=== PATIENT | male | born 1995 | race Caucasian/White ===

== ENCOUNTER 2017-07-19 21:42 | Emergency (ER) | payer BC, OTHER ==
[~2017-07-19] VITALS: Ht 172.7 cm; Wt 71.8 kg
[2017-07-19] MEDS ORDERED: ONDANSETRON 2MG/ML, 2ML ONE (22:08)
[2017-07-19] MEDS ORDERED: MORPHINE SULFATE 4 MG/ML, 1ML ONE (22:08)
[2017-07-19] MEDS ORDERED: MAALOX/HYOSCYAMINE/LIDOCAINE 45 ML BTL ONE (22:09)
[2017-07-19] MEDS ORDERED: FAMOTIDINE 20 MG/2 ML ONE (22:09)
[2017-07-19 22:23] LABS: HEMATOCRIT 48.7 % (39.2-51.8); HEMOGLOBIN 16.2 g/dL (13.7-18.0); WHITE BLOOD COUNT 7.9 x10^3/uL (3.4-10)
[2017-07-19] MEDS ORDERED: CICL6.1H5 NAS (22:26)
[2017-07-19] MEDS ORDERED: FAMOTIDINE 20 MG/2 ML IVP ONE (22:30)
[2017-07-19] MEDS ORDERED: ONDANSETRON 2MG/ML, 2ML IVPush ONE (22:30)
[2017-07-19] MEDS ORDERED: MAALOX/HYOSCYAMINE/LIDOCAINE 45 ML BTL PO ONE (22:30)
[2017-07-19] MEDS ORDERED: SODIUM CHLORIDE 0.9% 1,000ML IVBOLUS ONE (22:30)
[2017-07-19] MEDS ORDERED: SODIUM CHLORIDE FLUSH 10ML SYR IVF ONE (22:30)
[2017-07-19] MEDS ORDERED: MORPHINE SULFATE 4 MG/ML, 1ML IVPush PRN (22:30)
[2017-07-19 22:33] LABS: BLOOD UREA NITROGEN 22 mg/dL (7-18)
[2017-07-19 22:34] LABS: ASPARTATE AMINO TRANSFERASE 32 U/L (15-37)
[2017-07-19] MEDS ORDERED: PROMETHAZINE 25 MG/ML, 1ML ONE (23:11)
[2017-07-19] MEDS ORDERED: PROMETHAZINE 25 MG/ML, 1ML IM ONE (23:30)
[2017-07-20 00:44] VITALS: BP 124/74
== END 2017-07-20 00:46 | disposition home or self-care (01) ==
LOC: ED 22:15
DX: R10.12 Left upper quadrant pain (principal); R11.2 Nausea with vomiting, unspecified; K92.0 Hematemesis
CPT/HCPCS: 36415; 74020; 80053; 85025; 86677; 96361; 96372; 96374; 96375; 99285; J2405; J2550; J7030; S0028